=== PATIENT | female | born 1985 | race American Indian/Alaskan Native ===

== ENCOUNTER 2020-08-29 09:06 | Emergency (ER) | payer MEDICARE, OTHER ==
[2020-08-29 09:33] VITALS: BP 132/80
--- NOTE | 2020-08-29 10:01 | Emergency Department Report ---
ED Female HPI - General Chief complaint: Vaginal Bleeding Stated complaint: BACK PAIN / MENSTRAL CYCLE COME ON TWO TIMES THIS Time Seen by Provider: 08/29/20 09:58 Source: patient Mode of arrival: Ambulatory Limitations: No Limitations - History of Present Illness Initial comments: 34-year-old obese female presents to the emergency room complaining of back pain and that she has had 2 menstrual periods for the month of August. And states that her menstrual cycle returned yesterday. Patient states is sharp back pain has not taken anything for it. She denies any injury no dysuria states that she is gone through 1 pack of pads since yesterday. She reports she is not on control and is sexually active. She does have a primary care provider. She denies any abdominal pain no nausea no vomiting no chest pain. MD Complaint: vaginal bleeding, other (Back pain) Onset/Timin -: days(s) Severity: severe Severity scale (0 -10): 10 Quality: cramping, sharp Consistency: constant Improves with: none Worsens with: none Are you Now?: No Last Menstrual Period: 08/18/20 EDC: 05/25/21 Associated Symptoms: vaginal bleeding. denies: abdominal pain, nausea/vomiting, fever/chills, loss of appetite, dysuria, hematuria - Related Data Sexually active: Yes Allergies Allergy/AdvReac Type Severity Reaction Status Date / Time No Known Allergies Allergy Unverified 08/29/20 09:28 ED Review of Systems ROS: Stated complaint: BACK PAIN / MENSTRAL CYCLE COME ON TWO TIMES THIS Other details as noted in HPI Comment: All other systems reviewed and negative ED Past Medical Hx - Past Medical History Previous Medical History?: No - Surgical History Past Surgical History?: No - Social History Smoking Status: Never Smoker Substance Use Type: None ED Physical Exam - General Limitations: No Limitations General appearance: alert, in no apparent distress, obese - Head Head exam: Present: atraumatic, normocephalic - Eye Eye exam: Present: normal appearance - ENT ENT exam: Present: normal external ear exam - Neck Neck exam: Present: normal inspection, full ROM - Respiratory Respiratory exam: Absent: normal lung sounds bilaterally, accessory muscle use - Cardiovascular Cardiovascular Exam: Present: regular rate - GI/Abdominal GI/Abdominal exam: Present: soft. Absent: distended, tenderness, guarding - Extremities Exam Extremities exam: Present: normal inspection, full ROM - Back Exam Back exam: Present: full ROM, muscle spasm - Neurological Exam Neurological exam: Present: alert, oriented X3, normal gait - Psychiatric Psychiatric exam: Present: normal affect, normal mood - Skin Skin exam: Present: warm, dry, intact, normal color. Absent: rash ED Course Vital Signs 08/29/20 09:28 Temperature 98.3 F Pulse Rate 67 Respiratory 20 Rate Blood Pressure 132/80 O2 Sat by Pulse 100 Oximetry ED Medical Decision Making - Lab Data Result diagrams: 08/29/20 10:14 - Medical Decision Making 34-year-old obese female presents to the emergency room complaining of back pain and that she has had 2 menstrual periods for the month of August. And states that her menstrual cycle returned yesterday. Patient states is sharp back pain has not taken anything for it. She denies any injury no dysuria states that she is gone through 1 pack of pads since yesterday. She reports she is not on c ontrol and is sexually active. She does have a primary care provider. She denies any abdominal pain no nausea no vomiting no chest pain. CBC, hCG and urinalysis CBC shows no anemia, urinalysis shows large amount of blood which is expected if she is on her cycle and hCG is is negative. Patient is recommend ibuprofen or Tylenol for pain management. Follow-up with the [facility] or primary care regards to dysfunctional uterine bleed. Critical care attestation.: If time is entered above; I have spent that time in minutes in the direct care of this critically ill patient, excluding procedure time. ED Disposition Clinical Impression: Acute back pain, Dysfunctional uterine bleeding Disposition: TO HOME OR SELFCARE Is pt being admited?: No Does the pt Need Aspirin: No Condition: Stable Instructions: Abnormal Uterine Bleeding, [id number], What You Need to Know About Chronic Back Pain Additional Instructions: Labs show no anemia negative test and urinalysis is negative for any infection. I recommend ibuprofen or Tylenol for pain management. Follow-up with your [facility] or primary care provider. Referrals: AUDREY AMEZCUA MD [Primary Care Provider] - 3-5 Days [facility] [Provider Group] - 3-5 Days Forms: Work/School Release Form(ED) Time of Disposition: 11:09
[2020-08-29 10:27] LABS: Bacteria,Urine 2+ /HPF (Negative); Bilirubin,Urine NEG (Negative); Blood,Urine LG (Negative); Color,Urine Yellow (Yellow); Mucus,Urine 3+ /HPF; Urobilinogen,Urine < 2.0 mg/dL (<2.0)
[2020-08-29 10:28] LABS: RBC,Urine > 182.0 /HPF (0.0-6.0)
[2020-08-29 10:51] LABS: Basophils % (Auto) 0.6 % (0.0-1.8); Eosinophils # (Auto) 0.1 K/mm3 (0.0-0.4); Eosinophils % (Auto) 1.1 % (0.0-4.3); Hematocrit 34.7 % (30.3-42.9); Hemoglobin 11.6 gm/dl (10.1-14.3); Lymphocytes # (Auto) 1.6 K/mm3 (1.2-5.4); Lymphocytes % (Auto) 25.1 % (13.4-35.0); Mean Corpuscular HGB Conc 33 % (30-34); Mean Corpuscular Volume 86 fl (79-97); Monocytes # (Auto) 0.4 K/mm3 (0.0-0.8); Monocytes % (Auto) 6.1 % (0.0-7.3); Platelet Count 290 K/mm3 (140-440); Red Blood Count 4.04 M/mm3 (3.65-5.03); Red Cell Distribution Width 14.5 % (13.2-15.2)
== END 2020-08-29 11:17 | disposition home or self-care (01) ==
LOC: ED 09:06
DX: M54.9 Dorsalgia, unspecified (principal); N93.9 Abnormal uterine and vaginal bleeding, unspecified
CPT/HCPCS: 36415; 81001; 84702; 85025; 99283

== ENCOUNTER 2020-10-26 20:45 | Emergency (ER) | payer OTHER ==
[2020-10-26 23:04] VITALS: BP 133/83
[2020-10-27 00:07] LABS: Bacteria,Urine 2+ /HPF (Negative); Bilirubin,Urine NEG (Negative); Blood,Urine MOD (Negative); Color,Urine Yellow (Yellow); HCG Qualitative,Urine Negative (Negative); Mucus,Urine 3+ /HPF; Urobilinogen,Urine < 2.0 mg/dL (<2.0); WBC,Urine > 182.0 /HPF (0.0-6.0)
--- NOTE | 2020-10-27 00:10 | Emergency Department Report ---
ED Female HPI - General Chief complaint: Urogenital-Female Stated complaint: PAINFUL AND FREQUENT URINATION Time Seen by Provider: 10/26/20 23:21 Source: patient Mode of arrival: Ambulatory Limitations: No Limitations - History of Present Illness Initial comments: Patient is a 35-year-old female who presents for super pubic pain , dysuria, frequency , and urgency. Pt denies vaginal discharge, thered is no abd pain , no n/vno fever or chills , no n/v. Symptoms are exacerbated by voiding, symptoms are relieved by nothing tried MD Complaint: dysuria - Related Data Previous Rx's Medication Instructions Recorded Last Taken Type Fluconazole [Diflucan TAB] 200 mg PO QDAY #2 tablet 10/27/20 Unknown Rx Nitrofurantoin [place]/M-Cryst 100 mg PO BID 7 Days #14 capsule 10/27/20 Unknown Rx [Macrobid CAP] Allergies Allergy/AdvReac Type Severity Reaction Status Date / Time No Known Allergies Allergy Verified 10/26/20 22:59 ED Review of Systems ROS: Stated complaint: PAINFUL AND FREQUENT URINATION Other details as noted in HPI Constitutional: malaise. denies: chills, fever Eyes: denies: eye pain, eye discharge, vision change ENT: ear pain. denies: throat pain, hearing loss, epistaxis, congestion Respiratory: see HPI. denies: cough, shortness of breath, wheezing Cardiovascular: denies: chest pain, palpitations Endocrine: no symptoms reported Gastrointestinal: denies: abdominal pain, nausea, vomiting, diarrhea Genitourinary: denies: urgency, dysuria, discharge Musculoskeletal: as per HPI Skin: denies: rash, lesions Neurological: denies: headache, weakness, paresthesias, confusion, vertigo Psychiatric: denies: anxiety, depression Hematological/Lymphatic: denies: easy bleeding, easy bruising ED Past Medical Hx - Past Medical History Previous Medical History?: No - Social History Smoking Status: Never Smoker Substance Use Type: None - Medications Home Medications: Home Medications Medication Instructions Recorded Confirmed Last Taken Type Fluconazole [Diflucan TAB] 200 mg PO QDAY #2 tablet 10/27/20 Unknown Rx Nitrofurantoin [place]/M-Cryst 100 mg PO BID 7 Days #14 capsule 10/27/20 Unknown Rx [Macrobid CAP] ED Physical Exam - General Limitations: No Limitations General appearance: alert, in no apparent distress - Head Head exam: Present: normocephalic, normal inspection - Eye Eye exam: Present: normal appearance, PERRL, EOMI, nystagmus, periorbital swelling Pupils: Present: normal accommodation - ENT ENT exam: Present: normal orophraynx, mucous membranes moist, TM's normal bilaterally - Neck Neck exam: Present: normal inspection, full ROM. Absent: tenderness - Respiratory Respiratory exam: Present: normal lung sounds bilaterally. Absent: respiratory distress, wheezes, stridor, chest wall tenderness - Cardiovascular Cardiovascular Exam: Present: regular rate, normal rhythm, normal heart sounds. Absent: systolic murmur, diastolic murmur, rubs, gallop - GI/Abdominal GI/Abdominal exam: Present: soft, normal bowel sounds. Absent: distended, tenderness, guarding, rebound, rigid, bruit, hernia - Rectal Rectal exam: Present: deferred - Extremities Exam Extremities exam: Present: normal inspection - Back Exam Back exam: Present: normal inspection, full ROM, CVA tenderness (L). Absent: CVA tenderness (R) - Neurological Exam Neurological exam: Present: alert, oriented X3, CN II-XII intact, normal gait, reflexes normal - Psychiatric Psychiatric exam: Present: normal affect, normal mood - Skin Skin exam: Present: warm, dry, intact, normal color. Absent: rash ED Course Vital Signs 10/26/20 10/26/20 23:02 23:04 Temperature 98.5 F Pulse Rate 78 Blood Pressure 133/83 O2 Sat by Pulse 100 Oximetry ED Medical Decision Making - Lab Data Labs 10/26/20 Unknown Urine Color Yellow Urine Turbidity Cloudy Urine pH 6.0 Ur Specific [place] 1.025 Urine Protein 30 mg/dl Urine Glucose (UA) Neg Urine Ketones Neg Urine Blood Mod Urine Nitrite Pos Urine Bilirubin Neg Urine Urobilinogen < 2.0 Ur Leukocyte Esterase Lg Urine WBC (Auto) > 182.0 H Urine RBC (Auto) 17.0 U Epithel Cells (Auto) 7.0 Urine Bacteria (Auto) 2+ Urine Mucus 3+ Urine Yeast (Budding) Few Urine HCG, Qual Negative - Medical Decision Making This is a UTI plan DC to home with prescriptions, hydrate as directed, follow-up with your doctor in 2 to 3 days. Return to emergency should symptoms worsen. Critical care attestation.: If time is entered above; I have spent that time in minutes in the direct care of this critically ill patient, excluding procedure time. ED Disposition Clinical Impression: UTI (urinary tract infection) Qualifiers: Urinary tract infection type: acute cystitis Hematuria presence: without hematuria Qualified Code(s): N30.00 - Acute cystitis without hematuria Disposition: HOME / SELF CARE / HOMELESS Is pt being admited?: No Does the pt Need Aspirin: No Condition: Stable Instructions: Urinary Tract Infection, Adult, Antibiotic Medicine, Adult, [id number] Additional Instructions: Take medications as prescribed, follow-up with your doctor in 2 to 3 days. Return to emergency if symptoms worsen. Prescriptions: Fluconazole [Diflucan TAB] 200 mg PO QDAY #2 tablet Nitrofurantoin [place]/M-Cryst [Macrobid CAP] 100 mg PO BID 7 Days #14 capsule Referrals: MADINA CHEUNG MD [Referring] - 3-5 Days Forms: Work/School Release Form(ED) Time of Disposition: 00:42
== END 2020-10-27 01:02 | disposition home or self-care (01) ==
LOC: ED 20:45
DX: N39.0 Urinary tract infection, site not specified (principal)
CPT/HCPCS: 81001; 81025; 99283

== ENCOUNTER 2021-04-20 10:38 | Emergency (ER) | payer OTHER ==
--- NOTE | 2021-04-20 14:24 | Emergency Department Report ---
- General Chief complaint: Abdominal Pain Stated complaint: STOMACH PAIN/BACK PAIN Time Seen by Provider: 04/20/21 13:30 Source: patient Mode of arrival: Ambulatory Limitations: No Limitations - Related Data Previous Rx's Medication Instructions Recorded Last Taken Type Fluconazole [Diflucan TAB] 200 mg PO QDAY #2 tablet 10/27/20 Unknown Rx Nitrofurantoin [place]/M-Cryst 100 mg PO BID 7 Days #14 capsule 10/27/20 Unknown Rx [Macrobid CAP] hydrOXYzine PAMOATE [Vistaril] 25 mg PO Q6HR PRN #15 capsule 04/20/21 Unknown Rx predniSONE [Deltasone] 5 mg PO DAILY #21 tab 04/20/21 Unknown Rx Allergies Allergy/AdvReac Type Severity Reaction Status Date / Time No Known Allergies Allergy Verified 10/26/20 22:59 Abscess Boil [facility] Chief Complaint: Abdominal Pain Stated Complaint: STOMACH PAIN/BACK PAIN Time Seen by Provider: 04/20/21 13:30 Home Medications: Previous Rx's Medication Instructions Recorded Last Taken Type Fluconazole [Diflucan TAB] 200 mg PO QDAY #2 tablet 10/27/20 Unknown Rx Nitrofurantoin [place]/M-Cryst 100 mg PO BID 7 Days #14 capsule 10/27/20 Unknown Rx [Macrobid CAP] hydrOXYzine PAMOATE [Vistaril] 25 mg PO Q6HR PRN #15 capsule 04/20/21 Unknown Rx predniSONE [Deltasone] 5 mg PO DAILY #21 tab 04/20/21 Unknown Rx Allergies/Adverse Reactions: Allergies Allergy/AdvReac Type Severity Reaction Status Date / Time No Known Allergies Allergy Verified 10/26/20 22:59 ED Review of Systems ROS: Stated complaint: STOMACH PAIN/BACK PAIN Other details as noted in HPI ED Past Medical Hx - Past Medical History Previous Medical History?: No - Surgical History Past Surgical History?: No - Social History Smoking Status: Never Smoker Substance Use Type: None - Medications Home Medications: Home Medications Medication Instructions Recorded Confirmed Last Taken Type Fluconazole [Diflucan TAB] 200 mg PO QDAY #2 tablet 10/27/20 Unknown Rx Nitrofurantoin [place]/M-Cryst 100 mg PO BID 7 Days #14 capsule 10/27/20 Unknown Rx [Macrobid CAP] hydrOXYzine PAMOATE [Vistaril] 25 mg PO Q6HR PRN #15 capsule 04/20/21 Unknown Rx predniSONE [Deltasone] 5 mg PO DAILY #21 tab 04/20/21 Unknown Rx ED Physical Exam - General Limitations: No Limitations ED Course Vital Signs 04/20/21 10:48 Temperature 98.5 F Pulse Rate 92 H Respiratory 16 Rate Blood Pressure 130/99 O2 Sat by Pulse 100 Oximetry Critical care attestation.: If time is entered above; I have spent that time in minutes in the direct care of this critically ill patient, excluding procedure time. ED Disposition Clinical Impression: Eczema Qualifiers: Eczema type: unspecified Qualified Code(s): L30.9 - Dermatitis, unspecified Disposition: 01 HOME / SELF CARE / HOMELESS Is pt being admited?: No Does the pt Need Aspirin: No Condition: Stable Instructions: Abdominal Pain (ED), Eczema, Atopic Dermatitis Additional Instructions: Take medications as prescribed. Follow-up with dermatology for further evaluation and management. Prescriptions: predniSONE [Deltasone] 5 mg PO DAILY #21 tab hydrOXYzine PAMOATE [Vistaril] 25 mg PO Q6HR PRN #15 capsule PRN Reason: Itching Referrals: REN TORREZ MD [Primary Care Provider] - 3-5 Days Time of Disposition: 14:24
[2021-04-20 14:31] LABS: HCG Qualitative,Urine Negative (Negative)
[2021-04-20 14:59] VITALS: BP 134/75
[2021-04-20 15:37] LABS: Bilirubin,Urine Negative (Negative); Color,Urine Yellow (Yellow)
[2021-04-20 15:38] LABS: Blood,Urine Small (Negative)
[2021-04-20] MEDS ORDERED: KETOROLAC 10 MG TAB PO ONE (15:42)
[2021-04-20 15:43] LABS: RBC,Urine < 1.0 /HPF (0.0-6.0); WBC,Urine < 1.0 /HPF (0.0-6.0)
[2021-04-20] MEDS ORDERED: cephALEXin 500 MG CAP PO ONE (15:44)
--- NOTE | 2021-04-20 15:47 | Emergency Department Report ---
ED Abdominal Pain HPI - General Chief Complaint: Abdominal Pain Stated Complaint: STOMACH PAIN/BACK PAIN Time Seen by Provider: 04/20/21 13:30 Source: patient Mode of arrival: Ambulatory Limitations: No Limitations - History of Present Illness Initial Comments: 35 yof with no pmh presents to ed for evaluation of left flank and left lower back pain. She denies fever but has had some nausea and fever. MD Complaint: flank pain -: Gradual, days(s) (2-3) Location: L flank Severity: severe Severity scale (0 -10): 7 Quality: aching Consistency: intermittent Associated Symptoms: nausea, vomiting, fever, dysuria. denies: diarrhea, chills, constipation, hematemesis, hematochezia, melena, hematuria, anorexia, syncope - Related Data LMP Date: 04/20/21 Previous Rx's Medication Instructions Recorded Last Taken Type Fluconazole [Diflucan TAB] 200 mg PO QDAY #2 tablet 10/27/20 Unknown Rx Nitrofurantoin [place]/M-Cryst 100 mg PO BID 7 Days #14 capsule 10/27/20 Unknown Rx [Macrobid CAP] Ketorolac [Toradol] 10 mg PO Q6H PRN #12 tab 04/20/21 Unknown Rx cephALEXin [Keflex] 500 mg PO Q12HR #20 cap 04/20/21 Unknown Rx Allergies Allergy/AdvReac Type Severity Reaction Status Date / Time No Known Allergies Allergy Verified 10/26/20 22:59 ED Review of Systems ROS: Stated complaint: STOMACH PAIN/BACK PAIN Other details as noted in HPI Comment: All other systems reviewed and negative Constitutional: fever. denies: chills, diaphoresis, malaise, weakness Eyes: denies: eye pain ENT: denies: ear pain Respiratory: denies: cough, shortness of breath, SOB with exertion, SOB at rest Cardiovascular: denies: chest pain, palpitations, dyspnea on exertion, orthopnea, edema, syncope, paroxysmal nocturnal dyspnea Endocrine: no symptoms reported Gastrointestinal: abdominal pain, nausea, vomiting. denies: diarrhea, hematemesis, melena, hematochezia Genitourinary: dysuria. denies: urgency, frequency, hematuria, discharge Musculoskeletal: back pain Skin: denies: rash, lesions Neurological: denies: headache, weakness, numbness, paresthesias Psychiatric: denies: anxiety, depression Hematological/Lymphatic: denies: easy bleeding, easy bruising ED Past Medical Hx - Past Medical History Previous Medical History?: No - Surgical History Past Surgical History?: No - Social History Smoking Status: Never Smoker Substance Use Type: None - Medications Home Medications: Home Medications Medication Instructions Recorded Confirmed Last Taken Type Fluconazole [Diflucan TAB] 200 mg PO QDAY #2 tablet 10/27/20 Unknown Rx Nitrofurantoin [place]/M-Cryst 100 mg PO BID 7 Days #14 capsule 10/27/20 Unknown Rx [Macrobid CAP] Ketorolac [Toradol] 10 mg PO Q6H PRN #12 tab 04/20/21 Unknown Rx cephALEXin [Keflex] 500 mg PO Q12HR #20 cap 04/20/21 Unknown Rx ED Physical Exam - General Limitations: No Limitations General appearance: alert, in no apparent distress - Head Head exam: Present: atraumatic, normocephalic - Eye Eye exam: Present: normal appearance. Absent: conjunctival injection - Neck Neck exam: Present: normal inspection. Absent: tenderness, lymphadenopathy - Respiratory Respiratory exam: Present: normal lung sounds bilaterally. Absent: respiratory distress, wheezes, rales, rhonchi, stridor, chest wall tenderness - Cardiovascular Cardiovascular Exam: Present: regular rate, normal heart sounds. Absent: normal rhythm - GI/Abdominal GI/Abdominal exam: Present: soft, tenderness (suprapubic), normal bowel sounds. Absent: distended, guarding, rebound - Extremities Exam Extremities exam: Present: normal inspection - Back Exam Back exam: Present: normal inspection. Absent: CVA tenderness (R), CVA ten derness (L), muscle spasm - Neurological Exam Neurological exam: Present: alert, oriented X3 - Psychiatric Psychiatric exam: Present: normal affect, normal mood - Skin Skin exam: Present: warm, dry, intact, normal color ED Course Vital Signs 04/20/21 04/20/21 10:48 14:58 Temperature 98.5 F Pulse Rate 92 H 85 Respiratory 16 18 Rate Blood Pressure 130/99 134/75 O2 Sat by Pulse 100 100 Oximetry ED Medical Decision Making - Medical Decision Making 35 yof with no pmh presents to ed for evaluation of left flank and left lower back pain. She denies fever but has had some nausea and fever. UA positive for UTI, negative CVA tenderness. Patient will be treated for UTI with 7 day coarse of Keflex along with Toradol as needed for pain. She was advised to take medications as prescribed and follow up with pcp if no improvement or worsening symptoms. - Differential Diagnosis UTI vs. pyelonephritis vs diverticulitis vs musculoskeletal back pain. Critical care attestation.: If time is entered above; I have spent that time in minutes in the direct care of this critically ill patient, excluding procedure time. ED Disposition Clinical Impression: UTI (urinary tract infection) Qualifiers: Urinary tract infection type: acute cystitis Hematuria presence: with hematuria Qualified Code(s): N30.01 - Acute cystitis with hematuria Disposition: 03 [facility] Is pt being admited?: No Does the pt Need Aspirin: No Condition: Stable Instructions: Urinary Tract Infection, Adult, [id number], Abdominal Pain (ED) Additional Instructions: Take medications as prescribed. Follow-up with primary care provider if no improvement or worsening symptoms. Prescriptions: cephALEXin [Keflex] 500 mg PO Q12HR #20 cap Ketorolac [Toradol] 10 mg PO Q6H PRN #12 tab PRN Reason: Pain Referrals: REN TORREZ MD [Primary Care Provider] - 3-5 Days Time of Disposition: 15:47
== END 2021-04-20 15:54 ==
LOC: ED 10:38
DX: N39.0 Urinary tract infection, site not specified (principal)
CPT/HCPCS: 81001; 81025; 99283